=== PATIENT | male | born 1955 | race Caucasian/White ===

== ENCOUNTER 2019-12-31 12:47 | Day surgery (SDC) | payer OTHER ==
[~2019-12-31] VITALS: Ht 177.8 cm; Wt 88.0 kg
[~2019-12-31 12:47] MED LIST: CENTRUM SILVER1 EAC1 PO; LOVASTATIN10 MG PO; OMEGA-3 KRILL1 EAC2 PO; OSTEO BI-FLEX1 EAC1 PO; SINGULAIR10 MG PO
[2019-12-31] MEDS ORDERED: ZOCOR40 MG PO (13:05)
[2019-12-31] MEDS ORDERED: COQ-10100 MG PO (13:06)
[2019-12-31] MEDS ORDERED: VISION VITAMIN1 EACH PO (13:06)
[2019-12-31] MEDS ORDERED: CENTRUM SILVER1 EAC6 PO (13:06)
[2019-12-31] MEDS ORDERED: ESTER-C 1,0001 EACH PO (13:07)
--- NOTE | 2019-12-31 14:33 | NUR ---
12/31/19 1433 Juanita Ortiz 1428-PATIENT ARRIVED TO PACU ON 2L NC RR EVEN. PATIENT AWAKE DENIES PAIN OR NAUSEA. ABDOMEN SOFT. IVF INFUSING. PATIENT LAYING LEFT LATERAL. HOB ELEVATED.
--- NOTE | 2020-01-01 13:20 | OR ---
[facility] [address] [place], [place] [address] Signed DATE OF OPERATION: 12/31/2019 SURGEON: Isak River MD PREOPERATIVE DIAGNOSIS: Colon surveillance. POSTOPERATIVE DIAGNOSIS: Diverticulosis sigmoid colon. PROCEDURE: Total colonoscopy to cecum. ANESTHESIA: Intravenous sedation, fentanyl 100 mcg, and Versed 5 mg. INDICATION: This 64-year-old white man is in excellent health overall. He is a patient of Rodney Dhillon PA-C of [place], [place]. He underwent colonoscopy by me in 2012, which was essentially normal. He has no symptoms of bleeding, diarrhea, or constipation. He is admitted at this time to undergo surveillance colonoscopy. He understands the risks of bleeding, infection, and perforation. 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 FINDINGS: The prep was good. Complete colonoscopy was undertaken to the cecum. Had diverticula of the sigmoid colon. There was no sign of polyps or cancer. There were minimal internal hemorrhoidal changes. DESCRIPTION OF PROCEDURE: The patient was brought to the endoscopy suite and placed in lateral decubitus position, given intravenous sedation to the point of slurred speech and nystagmus. Digital rectal examination was normal. The Olympus video colonoscope was passed in the rectum and manipulated throughout the colon ultimately intubating the cecum. The scope was withdrawn from that point. Examination throughout showed no sign of abnormality other than a few diverticula of the Electronically Signed By: ISAK RIVER MD 01/01/20 1320 PATIENT NAME: VANESSA POWERS OPERATIVE REPORT DATE OF : 59 REPORT #: [id number] PHYSICIAN: ISAK RIVER MD PCP: RODNEY DHILLON REPORT IS CONFIDENTIAL AND NOT TO BE RELEASED WITHOUT AUTHORIZATION [facility] [address] [place] [id number] Signed sigmoid colon. Retroflexed view of the rectum showed some internal hemorrhoidal change, but minimal in amount. The scope was straightened, withdrawn, removed and the patient was taken to the recovery room in good condition. CONCLUDING DIAGNOSIS: Diverticular change of sigmoid, minimal internal hemorrhoidal change. PLAN: Recommend high-fiber diet. We would recommend repeat colonoscopy in 7 years more or less, sooner if symptoms should occur. He will return to the ongoing care of WALTER Spears in [place], [place]. MD PEPE Mora/TONI /[id number] cc: Rodney Dhillon PA-C Copies: RODNEY DHILLON ~ Electronically Signed By: ISAK RIVER MD 01/01/20 1320 PATIENT NAME: VANESSA POWERS OPERATIVE REPORT DATE OF : 59 REPORT #: [id number] PHYSICIAN: ISAK RIVER MD PCP: RODNEY DHILLON REPORT IS CONFIDENTIAL AND NOT TO BE RELEASED WITHOUT AUTHORIZATION
== END 2019-12-31 15:02 | disposition home or self-care (01) ==
LOC: OPS 12:47 → DS 12:54 → OPS 14:00
PROVIDERS: ATTEND Surgery
PROC: 0DJD8ZZ Inspection of Lower Intestinal Tract, Via Natural or Artificial Opening Endoscopic (ICD-10-PCS; principal; 2019-12-31 14:00)
DX: Z12.11 Encounter for screening for malignant neoplasm of colon (principal); K64.8 Other hemorrhoids; K57.30 Diverticulosis of large intestine without perforation or abscess without bleeding; Z79.899 Other long term (current) drug therapy
CPT/HCPCS: 99153; G0500; J2250; J3010; J7121

== ENCOUNTER 2023-11-09 06:15 | Day surgery (SDC) | payer MEDICARE, OTHER ==
[~2023-11-09] VITALS: Ht 177.8 cm; Wt 92.5 kg
[~2023-11-09 06:15] MED LIST changes: +CENTRUM SILVER1 EAC6 PO; +COQ-10100 MG PO; +ESTER-C 1,0001 EACH PO; +MIDAZOLAM HCL 5 MG/5 ML VIAL IV PRN; +VISION VITAMIN1 EACH PO; +ZOCOR40 MG PO; +fentaNYL citrate 100 MCG/2 ML VIAL IV PRN
[2023-11-09 06:43] VITALS: BP 128/74
[2023-11-09] MEDS ORDERED: SMARTER GREENS (06:54)
[2023-11-09] MEDS ORDERED: fentaNYL citrate 100 MCG/2 ML VIAL ONE (07:00)
[2023-11-09] MEDS ORDERED: LIDOCAINE HCL 4% 50 ML BTL TOP SCH (07:00)
[2023-11-09] MEDS ORDERED: LIDOCAINE HCL 1% 5 ML SDV INJ ONE (07:00)
[2023-11-09] MEDS ORDERED: MIDAZOLAM HCL 5 MG/5 ML VIAL ONE (07:00)
[2023-11-09] MEDS ORDERED: LACTATED RINGER'S 1,000 ML IV SCH (07:00)
[2023-11-09] MEDS ORDERED: IBLOOD GLUCOSE TEST STRIP 1 EA TEST VI PRN (07:00)
--- NOTE | 2023-11-09 07:16 | NUR ---
VISITED DURING SPIRITUAL CARE ROUNDS. PT RECEIVING NURSING CARE. DID NOT INTERRUPT. PROVIDED PRAYER.
--- NOTE | 2023-11-09 08:05 | NUR ---
11/09/23 0805 Roya Garcia 0750 PT ARRIVED TO PACU ON 2L VIA NC, PT WAKES TO VERBAL STIMULI AND DENIES CONCERNS. PLAN OF CARE DISCUSSED AND PT EASILY FALLS BACK TO SLEEP.
[2023-11-09 08:34] VITALS: BP 115/79
--- NOTE | 2023-11-09 11:49 | OR ---
[facility] [address] [place], [place] [address] Signed DATE OF OPERATION: 11/09/2023 SURGEON: Isak River MD PREOPERATIVE DIAGNOSIS: Persistent hypopharyngeal, mild dysphagia and excessive phlegm. POSTOPERATIVE DIAGNOSIS: Normal-appearing esophagus; mild proximal gastritis, otherwise normal. PROCEDURE: Esophagogastroduodenoscopy with biopsy. ANESTHESIA: Intravenous sedation; fentanyl 100 mcg and Versed 5 mg. INDICATIONS FOR THE PROCEDURE: This 68-year-old white man is a patient of WALTER Spears in [place], [place]. He was seen by me upon referral for consideration of upper endoscopy. It is recalled he underwent colonoscopy in 2019 showing diverticulosis. The most recent issue is persistent "phlegm" and coughing up of phlegm. He does not have actual obstructive symptoms, hypersalivation, or sensation of food being stuck, but primarily difficulty with persistent phlegm and possibly some reflux symptoms. He is taking no PPI medication or other remedy for this. He has no nocturnal symptoms. He has no hematemesis. He denies any sinus issues, though in 2011 he did undergo sinus operation. This included repair of a deviated septum. Given his excessive phlegm complaints, consideration is made for upper endoscopy to assess for obstructive problem. Notably, he has a video esophagram scheduled, but not until November 12. As regard to upper endoscopy, he understands the risk of bleeding, infection, and perforation related to upper endoscopy and wished to proceed. FINDINGS: Essentially, it was normal. The esophagus clearly was normal. There was no evidence of the eosinophilic esophagitis clinically nor Sorenson epithelium and the flap valve was reasonably good. There was mild antral proximal gastritis, but certainly no ulcer. There was no gastric outlet obstruction. Duodenum was normal. More proximal hypopharyngeal evaluation showed normal vocal cords. No excessive phlegm or secretions and no other abnormality. DESCRIPTION OF PROCEDURE: Electronically Signed By: ISAK RIVER MD 11/09/23 1149 PATIENT NAME: VANESSA POWERS OPERATIVE REPORT DATE OF : 59 REPORT #: [id number] PHYSICIAN: ISAK RIVER MD PCP: RODNEY DHILLON REPORT IS CONFIDENTIAL AND NOT TO BE RELEASED WITHOUT AUTHORIZATION [facility] [address] [place], [place] [address] Signed The patient was brought to the endoscopy suite and placed in lateral decubitus position given intravenous sedation to the point of slurred speech and nystagmus. Full cardiopulmonary monitoring was maintained. A bite block was placed. An Olympus video upper endoscope was passed into the hypopharynx. The vocal cords appeared normal. Scope was advanced to the esophagus and throughout its length it appeared completely normal. The scope was passed to the stomach, which was insufflated with air. Rugal folds were normal. The antrum and pylorus were normal. Scope was passed through into the duodenum, which was also normal. Biopsies were obtained to assess for celiac disease. The scope was withdrawn and biopsies then taken of the antrum for both ANTOINETTE and pathologic testing. Retroflexed view showed a reasonably good flap valve. The scope was withdrawn to the distal esophagus, which was affirmed as normal with no evidence of Sorenson epithelium, stricture, neoplasm, or other abnormality. Biopsies were taken nevertheless. Further withdrawal allowed for biopsy of the mid esophagus to assess for eosinophilic esophagitis, so it is likely from a clinical appearance. Further withdrawal showed no other abnormalities. Scope was removed. The patient was taken to the recovery room in good condition. CONCLUDING DIAGNOSIS: Uncertain as to the source of his complaint with "excessive phlegm," this may represent an allergy related phenomenon or sinus problem. I left from that he has had a chest x-ray to rule out pulmonary associated issues, and if not we will order one today. He will have his video esophagram performed on November 12 as planned and we will see him back in the next few weeks to review all of this. MD PEPE Mora/VERONICAL /[id number] cc: Rodney Dhillon PA-C Electronically Signed By: ISAK RIVER MD 11/09/23 1149 PATIENT NAME: VANESSA POWERS OPERATIVE REPORT DATE OF : 59 REPORT #: [id number] PHYSICIAN: ISAK RIVER MD PCP: RODNEY DHILLON REPORT IS CONFIDENTIAL AND NOT TO BE RELEASED WITHOUT AUTHORIZATION [facility] [address] [place] [address] [place], [place] [address] Signed Copies: RODNEY DHILLON ~ Electronically Signed By: ISAK RIVER MD 11/09/23 1149 PATIENT NAME: VANESSA POWERS SHAVON OPERATIVE REPORT DATE OF : 59 REPORT #: [id number] PHYSICIAN: ISAK RIVER MD PCP: RODNEY DHILLON REPORT IS CONFIDENTIAL AND NOT TO BE RELEASED WITHOUT AUTHORIZATION
--- NOTE | 2023-11-14 16:36 | PATH ---
[facility] [address] [place], [place] [address] Signed SPECIMEN(S): A DUODENAL BIOPSY SPECIMEN(S): B ANTRUM BIOPSY SPECIMEN(S): C LOWER ESOPHAGEAL BIOPSY SPECIMEN(S): D MIDDLE ESOPHAGEAL BIOPSY SPECIMEN SOURCE: A. DUODENAL BIOPSY B. ANTRUM BIOPSY C. LOWER ESOPHAGEAL BIOPSY D. MIDDLE ESOPHAGEAL BIOPSY CLINICAL HISTORY: Pre: Persistent phlegm and reflux symptoms. Post: Mild gastritis. FINAL PATHOLOGIC DIAGNOSIS: A. Duodenal biopsy: - Benign duodenal mucosa, negative for specific diagnostic abnormality. B. Antrum biopsy: - Benign gastric mucosa with focal slight chronic inflammation. - Negative for evidence of Helicobacter organisms on routine HE stain sections. C. Lower esophageal biopsy: - Benign esophageal mucosa, negative for increased epithelial eosinophils. - Negative for glandular mucosa. D. Middle esophageal biopsy: - Benign esophageal mucosa, negative for increased epithelial eosinophils. JVR:april MICROSCOPIC EXAMINATION: Histologic sections of all submitted blocks are examined by light microscopy. These findings, together with the gross examination, support the pathologic diagnosis. GROSS DESCRIPTION: A. The specimen, labeled and designated "Sharon, R, " and designated on the requisition "duodenum biopsy," is received in formalin and consists of three thakkar soft tissue fragments that measure 0.2-0.4 cm in greatest dimension. The specimen is entirely submitted in (A1). B. The specimen, labeled and designated "Sharon, R, " and designated on the requisition "antrum/pylorus biopsy," is received in formalin and consists of one thakkar soft tissue fragment that is 0.5 cm in PATIENT NAME: VANESSA POWERS PATHOLOGY DATE OF : 59 REPORT #: [id number] PHYSICIAN: ELIAS LIANG PCP: CARLOS HORN REPORT IS CONFIDENTIAL AND NOT TO BE RELEASED WITHOUT AUTHORIZATION [facility] [address] [place], [place] [address] Signed greatest dimension. The specimen is entirely submitted in (B1). C. The specimen, labeled and designated "Sharon, R, " and designated on the requisition "lower esophagus biopsy," is received in formalin and consists of three white-thakkar soft tissue fragments that measure 0.4-0.6 cm in greatest dimension. The specimen is entirely submitted in (C1). D. The specimen, labeled and designated "Sharon, R, " and designated on the requisition "middle esophagus biopsy," is received in formalin and consists of three white-thakkar soft tissue fragments that measure 0.2-0.5 cm in greatest dimension. The specimen is entirely submitted in (D1). FB (under the direct supervision of a pathologist) The Gross Description was prepared using a voice recognition system. The report was reviewed for accuracy; however, sound-alike word errors, addition and/or deletions may occur. If there is any question about this report, please contact Client Services. ADDITIONAL NOTES: Immunohistochemical and/or in situ hybridization studies if performed in this case included appropriate positive controls that reacted as expected. This test was developed and its performance characteristics determined by [facility]. It has not been cleared or approved by the U.S. Food and Drug Administration. The FDA has determined that such clearance or approval is not necessary. This test is used for clinical purposes. It should not be regarded as investigational or for research. [facility] is certified under the Clinical Laboratory Improvement Amendments of 1988 (CLIA) as qualified to perform high complexity clinical laboratory testing. PERFORMING LABORATORY: Technical component was performed by [facility], [address] [address] (CLIA# [id number]). Professional interpretation was performed by [facility] - [facility], [address] [place], [place] [address]., [place] [address] (CLIA#: [id number]). Diagnostician: Guillermo Freeman MD Pathologist Electronically Signed 11/14/2023 PATIENT NAME: VANESSA POWERS PATHOLOGY DATE OF : 59 REPORT #: [id number] PHYSICIAN: ELIAS PATHOLOGY PCP: CARLOS HORN REPORT IS CONFIDENTIAL AND NOT TO BE RELEASED WITHOUT AUTHORIZATION [facility] [address] [place] [address] [place] [address] Signed Copies: ~ PATIENT NAME: VANESSA POWERS PATHOLOGY DATE OF : 59 REPORT #: [id number] PHYSICIAN: ELIAS LIANG PCP: CARLOS HORN REPORT IS CONFIDENTIAL AND NOT TO BE RELEASED WITHOUT AUTHORIZATION
== END 2023-11-09 08:45 | disposition home or self-care (01) ==
LOC: DS 06:15
PROVIDERS: ATTEND Surgery
PROC: 0DB68ZX Excision of Stomach, Via Natural or Artificial Opening Endoscopic, Diagnostic (ICD-10-PCS; 2023-11-09)
PROC: 0DB58ZX Excision of Esophagus, Via Natural or Artificial Opening Endoscopic, Diagnostic (ICD-10-PCS; 2023-11-09)
PROC: 0DB98ZX Excision of Duodenum, Via Natural or Artificial Opening Endoscopic, Diagnostic (ICD-10-PCS; principal; 2023-11-09 07:30)
DX: K29.50 Unspecified chronic gastritis without bleeding (principal); R13.10 Dysphagia, unspecified; K11.7 Disturbances of salivary secretion; H51.8 Other specified disorders of binocular movement; D49.511 Neoplasm of unspecified behavior of right kidney; Z79.899 Other long term (current) drug therapy
CPT/HCPCS: 71045; 88305; 99153; G0500; J2250; J3010; J7121

== ENCOUNTER 2024-12-28 21:00 | Emergency (ER) | payer OTHER, MEDICARE ==
[~2024-12-28] VITALS: Ht 177.8 cm; Wt 90.0 kg
[~2024-12-28 21:00] MED LIST changes: -MIDAZOLAM HCL 5 MG/5 ML VIAL IV PRN; +SMARTER GREENS; -fentaNYL citrate 100 MCG/2 ML VIAL IV PRN
[2024-12-28 21:55] VITALS: BP 145/97
[2024-12-28] MEDS ORDERED: IBUPROFEN 800 MG TAB PO ONE (22:00)
== END 2024-12-28 22:04 | disposition home or self-care (01) ==
LOC: ED 21:00
DX: S60.511A Abrasion of right hand, initial encounter (principal); S16.1XXA Strain of muscle, fascia and tendon at neck level, initial encounter; V40.5XXA Car driver injured in collision with pedestrian or animal in traffic accident, initial encounter; Z79.899 Other long term (current) drug therapy
CPT/HCPCS: 99283; A9270